=== PATIENT | female | born 1960 | race Caucasian/White ===

== ENCOUNTER 2017-02-16 14:04 | Inpatient (IN) | payer OTHER ==
[~2017-02-16] VITALS: Ht 162.6 cm; Wt 49.9 kg
--- NOTE | 2017-02-16 15:30 | NUR ---
PRE-ASSESSMENT: Pre-Assessment done at intake office, client is A/O x4, she presents with flat affect, anxious mood and flushed face. T 98, RR 18, BP 137/68, HR 89, spO2 @ 98% on RA, denies any pain. She is fully ambulatory. She denies any allergies; she reports hx of withdrawal-induced seizure. PMH: peptic ulcer, cirrhosis, ascites, anxiety. Medications taken at home supplements, diuretics. Substance history alcohol (Vodka) daily for the past 3 months "unknown amount" longest period of sobriety 18 months from 05/30-10/28
[2017-02-16] MEDS ORDERED: CLONIDINE HCL 0.1 MG TABLET PO PRN (15:45)
[2017-02-16] MEDS ORDERED: THIAMINE HCL 200 MG/2 ML VIAL IM ONE (15:45)
[2017-02-16] MEDS ORDERED: ONDANSETRON 4 MG/2 ML VIAL IM PRN (15:45)
[2017-02-16] MEDS ORDERED: LOPERAMIDE HCL 2 MG CAPSULE PO PRN ×2 (15:45)
[2017-02-16] MEDS ORDERED: LORAZEPAM 1 MG TABLET PO PRN ×2 (15:45)
[2017-02-16] MEDS ORDERED: MIRALAX 17 GM POWD.PACK PO PRN (15:45)
[2017-02-16] MEDS ORDERED: ACETAMINOPHEN 325 MG TABLET PO PRN (15:45)
[2017-02-16] MEDS ORDERED: ONDANSETRON ODT 4 MG TAB.RAPDIS SL PRN (15:45)
[2017-02-16] MEDS ORDERED: MAG HYDROX/AL HYDROX/SIMETH 30 ML LIQUID UDC PO PRN (15:45)
[2017-02-16] MEDS ORDERED: NICOTINE POLACRILEX 4 MG GUM-PK OF TEN BC PRN (15:45)
[2017-02-16] MEDS ORDERED: LORAZEPAM 2 MG/1 ML VIAL IM PRN (15:45)
[2017-02-16] MEDS ORDERED: NICOTINE 14 MG/24HR PATCH TD PRN (15:45)
[2017-02-16] MEDS ORDERED: IBUPROFEN 400 MG TABLET PO PRN (15:45)
[2017-02-16 16:00] VITALS: BP 137/68
--- NOTE | 2017-02-16 16:00 | NUR ---
Admissions Note 56 year old female admitted to [facility] for withdrawal from alcohol. Client is oriented to unit, educated about protocols and how to work TV and call light in her room. Weight: 110 pounds. Height: 5'4" CIWA 4 Client appears anxious and depressed. Skin discoloration on r fontaine, dry scab on R fontaine and R forearm d/t a fall 3 weeks ago. Bilateral lung clear on auscultation, abdomen soft, distended, no edema on extremities noted. Clients voice is soft, she avoids eye contact. Client has NKA. Regular diet ordered. Full code status ordered. LBM was 02/15/17, small/brown/soft. MD Maurice is PCP. She verbalizes consent for PNA/FLU vaccine at this time, She gives verbal consent for HIV test. Client states that she was living at a physical therapy facility for the past month, but after treatment will be living with her son Leonardo. Last drink 02/15/17, "unknown" amount and time She reports 3 prior treatments, last been at [facility] for a month, can not remember date. Urine has not been collected yet. All safety measures instituted. Fall and seizure precaution. Call light within reach. Will continue to monitor.
[2017-02-16] MEDS ORDERED: FURO40TA5 PO (16:23)
[2017-02-16] MEDS ORDERED: POTA-10 PO (16:23)
[2017-02-16] MEDS ORDERED: LACT10SO PO (16:23)
[2017-02-16] MEDS ORDERED: MAGN400C PO (16:23)
[2017-02-16] MEDS ORDERED: CRAN450T9 PO (16:23)
[2017-02-16] MEDS ORDERED: FOLI1TAB16 PO (16:23)
[2017-02-16] MEDS ORDERED: POTA99TA14 PO (16:23)
[2017-02-16] MEDS ORDERED: BIOT5000 PO (16:23)
[2017-02-16] MEDS ORDERED: OMEG-153 PO (16:23)
[2017-02-16] MEDS ORDERED: THIA100T13 GT (16:23)
[2017-02-16] MEDS ORDERED: CLOT10TR MM (16:23)
[2017-02-16] MEDS ORDERED: TRAZ-144 PO (16:23)
[2017-02-16] MEDS ORDERED: MULT-1160 PO (16:23)
[2017-02-16] MEDS ORDERED: MULT1TAB63 PO (16:23)
[2017-02-16] MEDS ORDERED: SPIR50TA PO (16:23)
[2017-02-16] MEDS ORDERED: CYAN250014 PO (16:23)
[2017-02-16] MEDS ORDERED: VITA-287 PO (16:23)
[2017-02-16] MEDS ORDERED: BACL10TA PO (16:23)
[2017-02-16] MEDS ORDERED: PANT40TA4 PO (16:23)
[2017-02-16] MEDS ORDERED: LACT1CAP71 PO (16:23)
[2017-02-16] MEDS ORDERED: CYAN10006 IM (16:23)
[2017-02-16] MEDS ORDERED: IRON1CAP24 PO (16:23)
[2017-02-16] MEDS ORDERED: POTA2TAB18 PO (16:23)
[2017-02-16] MEDS ORDERED: CHOL400C8 PO (16:23)
--- NOTE | 2017-02-16 17:35 | NUR ---
Dr. Brady notified of Potassium 2.7 NNO at this time, client is in bed, she is asymptomatic.
[2017-02-16 17:51] LABS: *URINE HCG, QUAL NEGATIVE (NEGATIVE)
[2017-02-16 18:01] LABS: ALANINE AMINOTRANSFERASE 33 U/L (14-59); ALKALINE PHOSPHATASE 170 U/L (50-136); AMYLASE 227 U/L (25-115); ASPARTATE AMINOTRANSFERASE 88 U/L (15-37); BILIRUBIN,TOTAL 3.2 mg/dL (0.2-1.0); CARBON DIOXIDE 33 mmol/L (21-32); CREATININE 0.9 mg/dL (0.6-1.3); GLUCOSE 108 mg/dL (74-106); MAGNESIUM 1.5 mg/dL (1.8-2.4); TOTAL PROTEIN, SERUM 7.6 g/dL (6.4-8.2); UREA NITROGEN, BLOOD 5 mg/dL (7-18)
[2017-02-16 18:05] LABS: *AMPHETAMINE, URINE NEGATIVE (NEGATIVE); *BARBITURATE, URINE NEGATIVE (NEGATIVE); *CANNABINOID, URINE NEGATIVE (NEGATIVE); *COCCAINE, URINE NEGATIVE (NEGATIVE); *OPIATE, URINE NEGATIVE (NEGATIVE); *PHENCYCLIDINE SCREEN,URINE NEGATIVE (NEGATIVE)
[2017-02-16 18:08] LABS: BASOPHILS % (AUTO) 0.2 % (0.0-2.0); CHLORIDE 86 mmol/L (98-107); EOSINOPHILS % (AUTO) 1.1 % (0.0-7.0); HEMATOCRIT 32.9 % (37-47); HEMOGLOBIN 10.9 G/DL (12.0-16.0); LYMPHOCYTES # (AUTO) 1.2 K/UL (0.8-4.8); LYMPHOCYTES % (AUTO) 27.2 % (20.5-51.5); MEAN CORPUSCULAR HGB CONC 33 g/dL (32.0-37.0); MEAN CORPUSCULAR VOLUME 93.6 FL (81.0-99.0); MONOCYTES # (AUTO) 0.5 K/UL (0.1-1.30); MONOCYTES % (AUTO) 10.8 % (0.0-11.0); NEUTROPHILS # (AUTO) 2.6 K/UL (1.8-8.9); NEUTROPHILS % (AUTO) 60.7 % (38.5-71.5); PLATELET COUNT (AUTO) 56 K/UL (150-450); RED BLOOD CELL COUNT(AUTO) 3.52 MIL/UL (4.2-5.4); WHITE BLOOD COUNT (AUTO) 4.3 K/UL (4.0-11.2)
[2017-02-16 18:11] LABS: ETHANOL < 3 MG/DL (0-0)
[2017-02-16 18:14] LABS: POTASSIUM 2.7 mmol/L (3.5-5.1)
[2017-02-16] MEDS ORDERED: LACTULOSE 20 G/30 ML LIQUID UDC PO PRN (18:15)
[2017-02-16] MEDS ORDERED: POTASSIUM CHLORIDE 20 MEQ TAB.PRT.SR PO ONE (18:30)
[2017-02-16] MEDS ORDERED: MAGNESIUM OXIDE 400 MG TABLET PO ONE (18:30)
[2017-02-16 18:32] LABS: BAND % (MANUAL) 5 % (0-10); LYMPHOCYTES % (MANUAL) 23 % (20-40); MONOCYTES % (MANUAL) 11 % (2-10); NEUTROPHILS % (MANUAL) 60 % (42-75)
[2017-02-16 18:33] LABS: EOSINOPHILS % (MANUAL) 1 % (0-8)
[2017-02-16] MEDS: SPIRONOLACTONE 50 MG PO SCH (18:47)
--- NOTE | 2017-02-16 18:50 | NUR ---
Per Dr. Brady client is DNR. spoke with her son Leonardo and he stated that her mom is DNR. Charge nurse notified.
--- NOTE | 2017-02-16 19:00 | NUR ---
Magnesium 1.5 replaced with Mag Ox 400mg PO, Potassium 2.7 replaced K-dur 400 mEq PO, client tolerated well.
--- NOTE | 2017-02-16 19:15 | NUR ---
END OF SHIFT NOTE Client is in bed, a/o x 4, she consume 50% of meal and PO fluid intake of 500mL, void x 1. Safety precautions rendered. call light within reach. Endorsed to incoming nurse.
--- NOTE | 2017-02-16 19:15 | NUR ---
START OF SHIFT NOTE: Patient is a 42 year old female admitted to [facility] on 02/16/2017 for Alcohol dependence continue PRN and scheduled medications. Patient tolerated well without ASE. Patient remains compliant with treatment, medications, and diet regime. Patient reports NKA. Patient is on DNR Code, Regular Diet, Fall and Seizures Precautions. Patient reports Past Medical History: Anxiety, Depression, Alcohol use disorder, Tobacco use disorder, History of withdrawal-induced seizures 10 years ago. Patient reports substance use history: "Alcohol - Vodka PO unknown amount since October,. Last used unknown amount on 02/15/2017". Patient reports history of recent Hospitalization/Treatment: "x3 "Prior Detox Treatment", Last been at "[facility]" for a month". MRSA from nares collected and sent to lab, as ordered. Upon endorsement, patient is resting in her room. CIWA 6. VS: T: 98'3, BP: 112/59, HR: 98, RR: 18, RA O2Sat: 100%, pain level: "0/10". Respirations unlabored and even. Lung Sounds are clear throughout. Abdomen is soft. Bowel Sounds are active in all 4 quadrants. Skin is warm and dry to touch. Patient has dry scab on the Right forearm and on the Right fontaine r/t "fall 3 weeks ago". DVT pumps in place as ordered. All needs met. All safety measures in place: Call light within reach, bed in lowest position and locked, padded rails up x2. Will continue to monitor closely. Addendum: 02/16/17 at 2207 by HALEY ADAMES RN Patient denies SI/HI. Encouraged to fluid intake as tolerated. Encouraged group activities to attend. Addendum: 02/17/17 at 0707 by HALEY ADAMES RN Patient is a 56 year old female admitted to [facility] on 02/16/2017 for Alcohol dependence continue PRN and scheduled medications.
[2017-02-16 20:00] VITALS: BP 112/59
[2017-02-16] MEDS ORDERED: TRAZODONE 50 MG TABLET PO PRN (21:00)
[2017-02-16] MEDS ORDERED: POTASSIUM CHLORIDE 10 MEQ CAPSULE.SA PO ONE (21:00)
[2017-02-17] VITALS (7 sets, daily range): BP systolic 103–129; BP diastolic 52–66
[2017-02-17] MEDS: PANTOPRAZOLE 40 MG SCH (06:14)
--- NOTE | 2017-02-17 07:05 | NUR ---
END OF SHIFT NOTE: Patient is a 42 year old female admitted to [facility] on 02/16/2017 for Alcohol dependence continue PRN and scheduled medications. Patient tolerated well without ASE. Patient remains compliant with treatment, medications, and diet regime. Patient reports NKA. Patient is on DNR Code, Regular Diet, Fall and Seizures Precautions. Patient reports Past Medical History: Anxiety, Depression, Alcohol use disorder, Tobacco use disorder, History of withdrawal-induced seizures 10 years ago. Patient reports substance use history: "Alcohol - Vodka PO unknown amount since October,. Last used unknown amount on 02/15/2017". Patient reports history of recent Hospitalization/Treatment: "x3 at "Prior Detox Treatment", Last been at "[facility]" for a month". MRSA from nares collected and sent to lab, as ordered. Last CIWA 3 @0400. CIWA taken when patient's awake during night. Last VS @0400: T: 98.3, BP: 103/52, HR: 83, RR:16, RA O2Sat: 95%, pain level: "0/10". Patient denies SI/HI. Respirations unlabored and even. Skin is warm and dry to touch. Patient has dry scab on the Right forearm and on the Right fontaine r/t "fall 3 weeks ago". No PRN Medications administrated last shift supervisor rn. Patient slept 8 hours, intake 759 ml, voided x2. Encouraged fluids intake as tolerated. Encouraged to attend groups activities. All needs met. Safety measures on place. Call light within reach, bed in lowest position and locked, padded rails up bilaterally. Patient endorsed to day shift nurse. Report given. Addendum: 02/17/17 at 0707 by HALEY ADAMES RN Patient is a 56 year old female admitted to [facility] on 02/16/2017 for Alcohol dependence continue PRN and scheduled medications.
[2017-02-17 07:11] LABS: BASOPHILS % (AUTO) 0.2 % (0.0-2.0); CREATININE 0.7 mg/dL (0.6-1.3); EOSINOPHILS # (AUTO) 0.1 K/uL (0.0-0.7); EOSINOPHILS % (AUTO) 2.4 % (0.0-7.0); HEMOGLOBIN 9.7 G/DL (12.0-16.0); LYMPHOCYTES # (AUTO) 1.3 K/UL (0.8-4.8); LYMPHOCYTES % (AUTO) 42.1 % (20.5-51.5); MAGNESIUM 1.6 mg/dL (1.8-2.4); MEAN CORPUSCULAR HEMOGLOBIN 31.8 UUG (27.0-31.0); MEAN CORPUSCULAR HGB CONC 33 g/dL (32.0-37.0); MEAN CORPUSCULAR VOLUME 95.2 FL (81.0-99.0); MONOCYTES # (AUTO) 0.5 K/UL (0.1-1.30); MONOCYTES % (AUTO) 17.5 % (0.0-11.0); NEUTROPHILS # (AUTO) 1.1 K/UL (1.8-8.9); NEUTROPHILS % (AUTO) 37.8 % (38.5-71.5); PHOSPHOROUS 2.6 mg/dL (2.5-4.9); POTASSIUM 3.4 mmol/L (3.5-5.1); RED BLOOD CELL COUNT(AUTO) 3.04 MIL/UL (4.2-5.4)
[2017-02-17 07:17] LABS: PLATELET COUNT (AUTO) 45 K/UL (150-450)
--- NOTE | 2017-02-17 08:00 | NUR ---
START OF SHIFT: RECEIVED PT A/O X 4. CIWA 2. SHE C/O MILD ANXIETY AND STATES IS MOSTLY ANXIOUS ABOUT THE FACT THAT SHE DOESN'T WANT TO BE HERE AND FEELS SHE DOES NOT NEED TO BE HERE IN DETOX. OFFERED SUPPORT. WILL CONTINUE TO MONITOR.
[2017-02-17] MEDS: SPIRONOLACTONE 50 MG PO SCH ×2 (08:36→17:00)
[2017-02-17] MEDS: THIAMINE HCL 100 MG TABLET PO SCH (08:36)
[2017-02-17] MEDS: FOLIC ACID 1 MG TABLET PO SCH (08:36)
[2017-02-17] MEDS: MULTIVITAMINS,THERAPEUTIC TABLET PO SCH (08:36)
[2017-02-17] MEDS: FUROSEMIDE 40 MG PO SCH (08:37)
[2017-02-17] MEDS: POTASSIUM CHLORIDE 10 MEQ SCH (08:38)
[2017-02-17] MEDS: CYANOCOBALAMIN 1000 MCG PO SCH (08:38)
[2017-02-17] MEDS: CHOLECALCIFEROL 400 MG PO SCH (08:38)
[2017-02-17] MEDS ORDERED: TUBERCULIN,PURIF.PROT.DERIV. 5 TU/0.1 ML TEST ID ONE (09:00)
[2017-02-17] MEDS ORDERED: MAGNESIUM OXIDE 400 MG TABLET PO ONE ×2 (09:30→21:00)
[2017-02-17] MEDS ORDERED: POTASSIUM CHLORIDE 20 MEQ TAB.PRT.SR PO ONE (09:30)
--- NOTE | 2017-02-17 09:30 | NUR ---
MAGNESIUM AND POTASSIUM ADMINISTERED FOR REPLACEMENT PER MD.
[2017-02-17 14:15] LABS: EOSINOPHILS % (MANUAL) 2 % (0-8); LYMPHOCYTES % (MANUAL) 31 % (20-40); MONOCYTES % (MANUAL) 13 % (2-10); NEUTROPHILS % (MANUAL) 54 % (42-75)
--- NOTE | 2017-02-17 14:22 | NUR ---
Therapist prompted client for group. Client agreed to attend and not isolate in her room.
--- NOTE | 2017-02-17 18:22 | NUR ---
END OF SHIFT: PT CONTINUES ON OBSERVATION WITH PRNS AVAILABLE. LAST CIWA 1. SHE DID MOT RECEIVE PRN MEDS. K AND MAG REPLACED PER MD AND LAB VALUES ABNORMAL. WILL PASS SHIFT REPORT TO ONCOMING NIGHT NURSE.
--- NOTE | 2017-02-17 19:30 | NUR ---
START OF SHIFT Pt is a 56 y/o female admitted for Alcohol dependency.Pt is A/O X 4,on regular diet has NKA and is on DNR status.PMH of anxiety,depression and cirrhosis.Pt received in room,resting in bed,c/o feeling anxious just because she is here; no c/o pain or s/s of distress noted.Pt is on PRN meds only,no tapers ordered.All safety measures in place per hospital policy with call pedro within reach;will continue to monitor.
[2017-02-17] MEDS ORDERED: POTASSIUM CHLORIDE 10 MEQ CAPSULE.SA PO ONE (21:00)
[2017-02-18] VITALS: BP 110/58
--- NOTE | 2017-02-18 04:00 | NUR ---
V/S REFUSED;CIWA DEFERRED PT IS IN DEEP SLEEP,REFUSED V/S;CIWA DEFERRED D/T SLEEP.
[2017-02-18] MEDS: PANTOPRAZOLE 40 MG SCH (06:37)
[2017-02-18 06:42] LABS: BASOPHILS % (AUTO) 0.2 % (0.0-2.0); EOSINOPHILS # (AUTO) 0.1 K/uL (0.0-0.7); EOSINOPHILS % (AUTO) 2.5 % (0.0-7.0); HEMATOCRIT 28.3 % (37-47); HEMOGLOBIN 9.5 G/DL (12.0-16.0); LYMPHOCYTES # (AUTO) 1.3 K/UL (0.8-4.8); LYMPHOCYTES % (AUTO) 40.4 % (20.5-51.5); MEAN CORPUSCULAR HEMOGLOBIN 32.2 UUG (27.0-31.0); MEAN CORPUSCULAR HGB CONC 34 g/dL (32.0-37.0); MONOCYTES # (AUTO) 0.5 K/UL (0.1-1.30); MONOCYTES % (AUTO) 15.4 % (0.0-11.0); NEUTROPHILS # (AUTO) 1.4 K/UL (1.8-8.9); NEUTROPHILS % (AUTO) 41.5 % (38.5-71.5); PLATELET COUNT (AUTO) 58 K/UL (150-450); RED BLOOD CELL COUNT(AUTO) 2.95 MIL/UL (4.2-5.4); WHITE BLOOD COUNT (AUTO) 3.3 K/UL (4.0-11.2)
--- NOTE | 2017-02-18 06:48 | NUR ---
END OF SHIFT Pt is a 56 y/o female admitted for Alcohol dependency.Pt is A/O X 4,on regular diet has NKA and is on DNR status.PMH of anxiety,depression and cirrhosis.Last CIWA=1.Pt is on PRN meds only,no tapers ordered.No PRN meds given last night.Pt slept 7 hrs last night,fluid intake was 855 mls,voided x 2.All safety measures in place per hospital policy with call pedro within reach;will continue to monitor.
[2017-02-18 06:59] LABS: BILIRUBIN,DIRECT 1.1 mg/dL (0.0-0.2); CREATININE 0.7 mg/dL (0.6-1.3); MAGNESIUM 1.8 mg/dL (1.8-2.4); PHOSPHOROUS 1.9 mg/dL (2.5-4.9); POTASSIUM 4.3 mmol/L (3.5-5.1); TOTAL PROTEIN, SERUM 6.2 g/dL (6.4-8.2)
--- NOTE | 2017-02-18 07:00 | NUR ---
Start of Shift Notes: Received report from night nurse. Patient is in his room. Alert and verbally responsive. Oriented x 4. Able to make needs known. Respirations even and unlabored. No SOB noted. Skin warm and dry to touch. Abdomen soft and non-distended with (+) BS in all 4 quadrants. No complains of N/V/D or constipation noted. Bladder non-distended. No complains of dysuria. Ambulatory ad maricarmen with steady gait. Patient is a 56 year female admitted for ETOH dependence who was placed on PRNs at this time. Has past medical hx of anxiety, depression, cirrhosis. Patient is DNR. Regular diet. NKA. On fall and seizure precautions. Educated patient on the current plan of care and the medication regimen. Encouraged oral fluid intake and encouraged group participation to learn new skills to prevent relapse. On fall and seizure precautions. Will continue to monitor.
[2017-02-18 07:07] LABS: HEPATITIS B SURFACE AG Negative (Negative)
[2017-02-18 08:00] VITALS: BP 120/64
[2017-02-18] MEDS: POTASSIUM CHLORIDE 10 MEQ SCH (08:20)
[2017-02-18] MEDS: CYANOCOBALAMIN 1000 MCG PO SCH (08:20)
[2017-02-18] MEDS: FUROSEMIDE 40 MG PO SCH (08:20)
[2017-02-18] MEDS: SPIRONOLACTONE 50 MG PO SCH ×2 (08:20→16:18)
[2017-02-18] MEDS: MULTIVITAMINS,THERAPEUTIC TABLET PO SCH (08:20)
[2017-02-18] MEDS: THIAMINE HCL 100 MG TABLET PO SCH (08:20)
[2017-02-18] MEDS: FOLIC ACID 1 MG TABLET PO SCH (08:20)
[2017-02-18] MEDS: CHOLECALCIFEROL 400 MG PO SCH (08:21)
[2017-02-18 09:45] LABS: BAND % (MANUAL) 1 % (0-10); EOSINOPHILS % (MANUAL) 4 % (0-8); LYMPHOCYTES % (MANUAL) 37 % (20-40); MONOCYTES % (MANUAL) 10 % (2-10); NEUTROPHILS % (MANUAL) 48 % (42-75)
--- NOTE | 2017-02-18 10:22 | NUR ---
Patient is 56 y/o female who present to [facility] for medically supervised withdrawal from ETOH. PO intake: good eating 100% of meals Anthropometry:current weight is 110lb,BMI 18.9 (wnl), physical assessment report suggest mild/moderate fat and muscle atrophy on orbital/chest/lower rib area labs:02/18 WBC-3.3(L),RBC-2.94/9.5(L/L),NA-131(L),BUN-6(L),PHOS-1.9(L),ALBUMIN-2.1(L) Medication: Vitamin B1,folic acid,MVI,no DNI nutrition diagnosis: Altered nutrition labs related to substance use,muscle/fat atrophy at evidenced by above labs nutrition intervention: Dietary supplant once,encourage good PO intake monitor:po intake,weight,new labs diet:2gmNA diet, on Therapeutic diet, Full assessment will be done per policy scheduled Addendum: 02/18/17 at [address] Amended: Links added.
[2017-02-18 12:00] VITALS: BP 118/78
[2017-02-18] MEDS ORDERED: MAGNESIUM OXIDE 400 MG TABLET PO ONE (13:00)
[2017-02-18] MEDS ORDERED: NEUTRA PHOS PACKET PO ONE (13:00)
--- NOTE | 2017-02-18 13:00 | NUR ---
Flu vaccine 0.5cc IM given: Flu vaccine 0.5cc IM given at this time as requested. VS stable. Afebrile. No cough. No congestion. No runny nose noted. Education provided. Will monitor for any adverse reactions noted. No bleeding to injection site noted.
[2017-02-18] MEDS ORDERED: THIA100T13 PO (13:34)
[2017-02-18] MEDS ORDERED: FOLI1TAB16 PO (13:34)
[2017-02-18] MEDS ORDERED: MULT-24 PO (13:34)
--- NOTE | 2017-02-18 14:00 | NUR ---
Mid Shift Notes: Patient is in her room. Encouraged patient to attend group and activities to increase social interaction.
[2017-02-18 16:00] VITALS: BP 122/72
[2017-02-18] MEDS ORDERED: INFLUENZA VACCINE 2017-2018 0.5 ML DISP.SYRIN IM ONE (17:00)
--- NOTE | 2017-02-18 18:56 | NUR ---
End of Shift Notes: Patient continues to be on close monitoring for s/s of ETOH withdrawal. Continues to be on PRNs to manage her withdrawal symptoms. Patient will be discharging tomorrow. VS monitored closely. No significant abnormalities noted. Withdrawal symptoms were closely monitored. Initial CIWA 1, due to tremors felt but not observed. Last CIWA 0. Patient requires encouragement to participate in group and activities. Flu vaccine 0.5cc IM given to patients right deltoid. No s/s of bleeding to injection site noted. All needs met and attended. Will continue to monitor closely.
--- NOTE | 2017-02-18 19:30 | NUR ---
START OF SHIFT Pt is a 56 y/o female admitted for Alcohol dependency,is being closely monitored for s/s of withdrawals.Pt is A/O X 4,on regular diet has NKA and is on DNR status.PMH of anxiety,depression and cirrhosis.Last CIWA was 0.Pt is on PRN meds only,no tapers ordered.Pt received in stable condition;she is scheduled for DC tomorrow.All needs met,all safety measures in place per hospital policy with call pedro within reach;will continue to monitor.
[2017-02-18 20:00] VITALS: BP 138/59
--- NOTE | 2017-02-19 | NUR ---
V/S REFUSED;CIWA DEFERRED PT IS IN DEEP SLEEP,REFUSED V/S;CIWA DEFERRED D/T SLEEP.BREATHING IS EVEN AND NON LABORED,NO S/S OF DISTRESS NOTED.
--- NOTE | 2017-02-19 04:00 | NUR ---
V/S REFUSED;CIWA DEFERRED PT IS IN DEEP SLEEP,REFUSED V/S;CIWA DEFERRED D/T SLEEP.BREATHING IS EVEN AND NON LABORED,NO S/S OF DISTRESS NOTED.
--- NOTE | 2017-02-19 06:36 | NUR ---
END OF SHIFT Pt is a 56 y/o female admitted for Alcohol dependency,is being closely monitored for s/s of withdrawals.Pt is A/O X 4,on regular diet has NKA and is on DNR status.PMH of anxiety,depression and cirrhosis.Last CIWA was 0.Pt is on PRN meds only,no tapers ordered.Pt is in stable condition;she is scheduled for DC today.No PRN meds given,pt slept 8 hrs,fluid intake was 710 mls,voided x 1,b/m x 1.No c/o pain or distress noted.All needs met,all safety measures in place per hospital policy with call pedro within reach;will continue to monitor. Addendum: 02/19/17 at 0716 by SINDI CARABALLO RN LAST CIWA WAS 1.
[2017-02-19] MEDS: PANTOPRAZOLE 40 MG SCH (07:08)
--- NOTE | 2017-02-19 07:44 | NUR ---
START OF SHIFT Rcvd endorsement from ongoing nurse, client is in room, she is a/o x 4, she presents with anxious mood, flat affect. She reports restless legs and abdominal cramps. She denies any N/V/D. She denies any SI/HI. She is schedule for discharge today at [facility]. Discharge instructions discuss with client, no inquiries at this time. Client is a 56 y/o female, admitted to [facility] for withdrawal from alcohol. Last CIWA 1 @ 1999. Client had an uneventful night, she slept 8 hrs. She reports a hx of withdrawal-induced seizures, Client reports NKA , she is DNR, regular diet. Side rails x 2 up/padded for seizure precautions. Call light within reach.
[2017-02-19 08:11] VITALS: BP 107/60
[2017-02-19] MEDS: MULTIVITAMINS,THERAPEUTIC TABLET PO SCH (08:48)
[2017-02-19] MEDS: FOLIC ACID 1 MG TABLET PO SCH (08:48)
[2017-02-19] MEDS: THIAMINE HCL 100 MG TABLET PO SCH (08:48)
[2017-02-19] MEDS: CYANOCOBALAMIN 1000 MCG PO SCH (08:49)
[2017-02-19] MEDS: CHOLECALCIFEROL 400 MG PO SCH (08:49)
[2017-02-19] MEDS: SPIRONOLACTONE 50 MG PO SCH (08:49)
[2017-02-19] MEDS: FUROSEMIDE 40 MG PO SCH (08:49)
[2017-02-19] MEDS: POTASSIUM CHLORIDE 10 MEQ SCH (08:49)
--- NOTE | 2017-02-19 09:45 | NUR ---
Discharge note Client was admitted for alcohol withdrawal. Client has a recent CIWA of 2. Client VS are WNL. Client LBM was 02/19/17. Client denies any SI/HI. Client verbalized her understanding of the discharge instructions. Client has no complaints at this time. Client discharge instructions, medications and all belongings returned to client. All needs addressed at this time. Client ID band removed, client ambulated off of unit, client left facility via [facility] for [facility].
== END 2017-02-19 09:45 | disposition other institution (70) | DRG 895 ==
LOC: SRC 14:50
PROVIDERS: ADMIT Internal Medicine; ATTEND Internal Medicine
PROC: HZ2ZZZZ Detoxification Services for Substance Abuse Treatment (ICD-10-PCS; principal; 2017-02-16)
PROC: HZ41ZZZ Group Counseling for Substance Abuse Treatment, Behavioral (ICD-10-PCS; 2017-02-18)
DX: F10.230 Alcohol dependence with withdrawal, uncomplicated (principal); E87.3 Alkalosis; D69.6 Thrombocytopenia, unspecified; E83.42 Hypomagnesemia; E88.09 Other disorders of plasma-protein metabolism, not elsewhere classified; E83.39 Other disorders of phosphorus metabolism; K76.6 Portal hypertension; E87.1 Hypo-osmolality and hyponatremia; K70.40 Alcoholic hepatic failure without coma; K70.31 Alcoholic cirrhosis of liver with ascites; Y90.9 Presence of alcohol in blood, level not specified; K27.7 Chronic peptic ulcer, site unspecified, without hemorrhage or perforation; Z86.69 Personal history of other diseases of the nervous system and sense organs; Z66 Do not resuscitate; F17.210 Nicotine dependence, cigarettes, uncomplicated; G47.00 Insomnia, unspecified; F41.9 Anxiety disorder, unspecified; Z81.1 Family history of alcohol abuse and dependence; Z83.3 Family history of diabetes mellitus; Z80.9 Family history of malignant neoplasm, unspecified; E86.0 Dehydration; E87.6 Hypokalemia; Z87.11 Personal history of peptic ulcer disease; D72.819 Decreased white blood cell count, unspecified; F10.288 Alcohol dependence with other alcohol-induced disorder; G62.1 Alcoholic polyneuropathy
CPT/HCPCS: 36415; 70030-TC; 80307; 83735; 84100; 84703; 85025; 86592; 86705; 86803; 87340; 87806; 90686; A4663; G0480; J3411